=== PATIENT | male | born 1965 | race Caucasian/White ===

== ENCOUNTER → 2020-07-02 11:58 | Outpatient (CLI) | payer MEDICAID | END | disposition home or self-care (01) | LOC: D.LAB 11:58 | PROVIDERS: ATTEND Thoracic Surgery (Cardiothoracic Vascular Surgery) | DX: Z11.52 Encounter for screening for COVID-19 (principal) ==

== ENCOUNTER → 2020-07-03 14:46 | Outpatient (CLI) | payer BC ==
[2020-07-03 15:26] LABS: SARS-CoV-2 ANTIGEN NEGATIVE- SARS-COV-2 (NEGATIVE)
== END | disposition home or self-care (01) ==
LOC: D.RT 14:46
PROVIDERS: ATTEND Thoracic Surgery (Cardiothoracic Vascular Surgery)
DX: C34.90 Malignant neoplasm of unspecified part of unspecified bronchus or lung (principal)

== ENCOUNTER 2020-07-30 05:09 | Inpatient (IN) | payer BC ==
[2020-07-25 11:41] LABS: HEMATOCRIT 39.6 % (42.0-54.0); HEMOGLOBIN 13.2 g/dL (13.5-17.5); MCH 29.6 pg (26.0-34.0); MCHC 33.3 g/dL (31.0-37.0); MEAN PLATELET VOLUME 7.1 fL (7.4-10.4); RBC 4.45 10x6/uL (4.20-6.10); RDW 13.4 % (11.5-14.5); WBC 6.6 10x3/uL (4.8-10.8)
[2020-07-25 11:58] LABS: APTT 31.9 SECONDS (22.8-39.4)
[2020-07-25 12:29] LABS: ALBUMIN 3.4 g/dL (3.4-5.0); ALKALINE PHOSPHATASE 81 U/L (30-120); ALT (SGPT) 23 U/L (10-68); BILIRUBIN - TOTAL 0.33 mg/dL (0.2-1.3); CALC OSMOLALITY 281 mosm/kg (275-300); CALCIUM 8.1 mg/dL (8.5-10.1); CARBON DIOXIDE 26.7 mmol/L (21.0-32.0); CHLORIDE - SERUM 107 mmol/L (98-107); CREATININE - SERUM 0.8 mg/dL (0.6-1.3); POTASSIUM - SERUM 4.3 mmol/L (3.5-5.1); PROTEIN - SERUM 7.2 g/dL (6.4-8.2); SODIUM 141 mmol/L (136-145); UREA NITROGEN 21 mg/dL (7-18); eGFR NON AFRICAN AMERICAN > 90 mL/min (90-120)
[2020-07-25 12:30] LABS: GLUCOSE 70 mg/dL (74-106)
[2020-07-25 13:05] LABS: INR 1.07 (0.85-1.17); PROTIME 12.8 SECONDS (11.6-15.0)
[2020-07-25 14:02] LABS: BACTERIA FEW HPF (<MOD); BILIRUBIN NEGATIVE (NEGATIVE); KETONE NEGATIVE mg/dL (< 1+); NITRITE NEGATIVE (NEGATIVE); PH 5.5 (5.0-8.0); SQUAMOUS EPITHELIAL 2 HPF (0-4); URIC ACID CRYSTALS RARE HPF (NONE SEEN); UROBILINOGEN 2 mg/dL (< 2); WHITE CELLS - URINE 1 HPF (0-1)
[~2020-07-30] VITALS: Ht 182.9 cm; Wt 80.1 kg
[2020-07-30] VITALS (38 sets, daily range): BP systolic 92–151; BP diastolic 47–80; BMI 22.4; BMI 22.1
--- NOTE | 2020-07-30 09:55 | NUR ---
CVL AND ARTERIAL LINE PLACED BY ANESTHESIA, CORNEL.
--- NOTE | 2020-07-30 14:15 | NUR ---
, DR. SLOAN, AND DR. WADE NOTIFIED OF CONSULT.
[2020-07-31] VITALS (35 sets, daily range): BP systolic 78–135; BP diastolic 46–76; Ht 182.9 cm; Wt 80.1 kg
[2020-07-31 04:44] LABS: BASOPHILS 0.2 % (0-2); EOSINOPHILS 0.6 % (0-7); HEMATOCRIT 32.8 % (42.0-54.0); HEMOGLOBIN 11.1 g/dL (13.5-17.5); MCH 29.8 pg (26.0-34.0); MCHC 33.8 g/dL (31.0-37.0); MCV 88.3 fL (80.0-100.0); MEAN PLATELET VOLUME 7.5 fL (7.4-10.4); MONOCYTES 7.2 % (2-11); RBC 3.72 10x6/uL (4.20-6.10); RDW 13.1 % (11.5-14.5); WBC 8.1 10x3/uL (4.8-10.8)
[2020-07-31 04:56] LABS: PLATELET COUNT 190 10x3/uL (130-400)
[2020-07-31 05:13] LABS: ALBUMIN 2.3 g/dL (3.4-5.0); ALKALINE PHOSPHATASE 54 U/L (30-120); ALT (SGPT) 32 U/L (10-68); BILIRUBIN - TOTAL 0.53 mg/dL (0.2-1.3); CARBON DIOXIDE 25.3 mmol/L (21.0-32.0); CHLORIDE - SERUM 107 mmol/L (98-107); CREATININE - SERUM 0.7 mg/dL (0.6-1.3); MAGNESIUM - SERUM 1.8 mg/dL (1.8-2.4); PHOSPHOROUS 3.9 mg/dL (2.5-4.9); POTASSIUM - SERUM 3.4 mmol/L (3.5-5.1); PROTEIN - SERUM 5.2 g/dL (6.4-8.2); SODIUM 138 mmol/L (136-145); UREA NITROGEN 9 mg/dL (7-18); eGFR NON AFRICAN AMERICAN > 90 mL/min (90-120)
[2020-07-31 05:18] LABS: CALC OSMOLALITY 275 mosm/kg (275-300); CALCIUM 6.9 mg/dL (8.5-10.1); GLUCOSE 110 mg/dL (74-106)
--- NOTE | 2020-07-31 09:36 | OP ---
PATIENT NAME: KALE SCOTT MEDICAL RECORD: [id number] :67 [facility]:07/30/20 SURGEON: JUNIOR DODGE MD DATE OF OPERATION: 07/30/2020 SURGEON: Junior Dodge MD PROCEDURES PERFORMED: 1. Right middle lobe lobectomy. 2. Lysis of dense intrapleural adhesions. 3. Mediastinal lymph node dissection. 4. Bronchoscopy. PREOPERATIVE DIAGNOSIS: Squamous cell carcinoma. POSTOPERATIVE DIAGNOSIS: Squamous cell carcinoma, T1N0M0. ANESTHESIA: Double lumen general endotracheal anesthesia. ESTIMATED BLOOD LOSS: 150 mL. COMPLICATIONS: None. SPECIMENS: 1. Right middle lobe lobectomy. 2. Multiple mediastinal lymph node stations. CONDITION: Stable. DISPOSITION: ICU. OPERATIVE FINDINGS: 1. Dense intrapleural adhesions with no visualization with fluoroscopy, posterolateral thoracotomy with lysis of adhesions and the tumor was actually in the middle lobe lateral aspect well away from the fissure. The fissures were incomplete and were completed with staple lines. Single large pulmonary artery branch of the middle lobe and a single separate branch of the pulmonary vein. The bronchus was airtight under water. 2. Multiple anthracotic lymph nodes. Good reexpansion of the lung and cryotherapy for pain control. INDICATION: Lung cancer. PROCEDURE IN DETAIL: The patient was brought to the operating suite. General anesthesia was obtained. Bronchoscopy confirmed the position of the tube. The patient was placed in lateral decubitus. Bronchoscopy was again performed. Padding was appropriate and the lung was deflated. The chest was opened. Dense adhesions were noted. Adhesions were taken down with electrocautery and sharply. Hemostasis was ensured. A section of rib was removed and the thoracotomy incision was made. The upper lobe was freed. The tumor was actually in the middle lobe. Fissures were completed with staple lines. The pulmonary artery was divided with a vascular stapler and the pulmonary vein divided with a vascular stapler. The bronchus was divided airtight under water. Upper and lower lobes were then ventilated. The mediastinal lymph node dissection was performed. Hemostasis was ensured. Chest tubes were placed OPERATIVE REPORT [id number] KALE SCOTT apically and inferiorly. Cryotherapy to the nerve roots was performed. Chest was then closed with pericostal sutures, two running muscle layers, subcutaneous, subcuticular and Dermabond. Anesthesia was reversed. The patient to ICU without air leak. TRANSINT:[id number] Voice Confirmation ID: [id number] DOCUMENT ID: [id number] JUNIOR DODGE MD at 0936 CC: MIRNA SLOAN MD [id number] DICTATION DATE: 07/30/20 1507 TRANSPORTATION WORKER: 07/30/20 1554 ADM IN [place] [id number] [place] [address]
[2020-08-01] VITALS (39 sets, daily range): BP systolic 101–129; BP diastolic 40–69
[2020-08-01 05:34] LABS: BASOPHILS 0.3 % (0-2); EOSINOPHILS 1.3 % (0-7); HEMATOCRIT 32.3 % (42.0-54.0); HEMOGLOBIN 10.8 g/dL (13.5-17.5); LYMPHOCYTES 17.7 % (15-50); MCH 29.9 pg (26.0-34.0); MCHC 33.5 g/dL (31.0-37.0); MCV 89.2 fL (80.0-100.0); MEAN PLATELET VOLUME 7.5 fL (7.4-10.4); MONOCYTES 9.1 % (2-11); NEUTROPHILS 71.6 % (40-80); PLATELET COUNT 197 10x3/uL (130-400); RBC 3.62 10x6/uL (4.20-6.10); RDW 13.6 % (11.5-14.5); WBC 8.5 10x3/uL (4.8-10.8)
[2020-08-01 05:44] LABS: ALBUMIN 2.2 g/dL (3.4-5.0); ALKALINE PHOSPHATASE 58 U/L (30-120); ALT (SGPT) 30 U/L (10-68); BILIRUBIN - TOTAL 0.59 mg/dL (0.2-1.3); CALC OSMOLALITY 265 mosm/kg (275-300); CALCIUM 7.7 mg/dL (8.5-10.1); CARBON DIOXIDE 27.2 mmol/L (21.0-32.0); CHLORIDE - SERUM 103 mmol/L (98-107); CREATININE - SERUM 0.6 mg/dL (0.6-1.3); GLUCOSE 98 mg/dL (74-106); MAGNESIUM - SERUM 2.1 mg/dL (1.8-2.4); PHOSPHOROUS 2.7 mg/dL (2.5-4.9); POTASSIUM - SERUM 4.3 mmol/L (3.5-5.1); PROTEIN - SERUM 5.6 g/dL (6.4-8.2); SODIUM 134 mmol/L (136-145); UREA NITROGEN 8 mg/dL (7-18); eGFR NON AFRICAN AMERICAN > 90 mL/min (90-120)
--- NOTE | 2020-08-01 19:25 | NUR ---
REPORT REC'D AND CARE ASSUMED, REC'D PT ON ROOM AIR SITTING UP IN BED WATCHING TV, AWAKE, ALERT, AND ORIENTED X 4, LEFT HAND PIV SALINE LOCKED, RIJ CVL DRSG CDI WITH PLASMALYTE @ 30CC/HR INFUSING, RIGHT POSTERIOR CHEST INCISION CDI, RIGHT LATERAL CT TO WATER SEAL, DRSG CDI, EPIDURAL TAPED SECURELY TO BACK, EPIDURAL INFUSING @ 8.5CC/HR WITH 4CC Q20MIN ELECTRIC SHIPYARD OPERATOR AVAILABLE, PT DENIES PAIN AT THIS TIME, DAVIS PATENT DRAINING CLEAR YELLOW URINE, BILAT TEDS AND SCDS, AIR OVERLAY MATTRESS IN USE, SR UP X 2, CALL LIGHT IN REACH.
--- NOTE | 2020-08-01 23:34 | NUR ---
PT COMPLAINS OF ITCHING ALL OVER, ANESTHESIA PAGED AT THIS TIME.
--- NOTE | 2020-08-01 23:35 | NUR ---
SPOKE WITH Brittney ARGUETA FROM ANESTHESIA REGARDING ITCHING, ONE TIME ORDER FOR BENADRYL REC'D, 25MG BENADRYL GIVEN IVP TO PT, BP 121/67, O2 96% ON ROOM AIR, WILL MONITOR CLOSELY FOR CHANGES.
[2020-08-02] VITALS (23 sets, daily range): BP systolic 105–145; BP diastolic 55–94
[2020-08-02 05:47] LABS: BASOPHILS 0.5 % (0-2); EOSINOPHILS 1.9 % (0-7); HEMOGLOBIN 11.1 g/dL (13.5-17.5); LYMPHOCYTES 16.2 % (15-50); MCH 29.9 pg (26.0-34.0); MCHC 33.6 g/dL (31.0-37.0); MCV 88.8 fL (80.0-100.0); MEAN PLATELET VOLUME 7.6 fL (7.4-10.4); MONOCYTES 8.1 % (2-11); NEUTROPHILS 73.3 % (40-80); PLATELET COUNT 202 10x3/uL (130-400); RBC 3.72 10x6/uL (4.20-6.10); RDW 13.1 % (11.5-14.5)
[2020-08-02 06:33] LABS: ALBUMIN 2.2 g/dL (3.4-5.0); ALKALINE PHOSPHATASE 64 U/L (30-120); ALT (SGPT) 33 U/L (10-68); BILIRUBIN - TOTAL 0.38 mg/dL (0.2-1.3); CALCIUM 8.2 mg/dL (8.5-10.1); CARBON DIOXIDE 29.4 mmol/L (21.0-32.0); CHLORIDE - SERUM 99 mmol/L (98-107); GLUCOSE 126 mg/dL (74-106); MAGNESIUM - SERUM 1.9 mg/dL (1.8-2.4); POTASSIUM - SERUM 4.3 mmol/L (3.5-5.1); PROTEIN - SERUM 6.1 g/dL (6.4-8.2); SODIUM 133 mmol/L (136-145)
[2020-08-02 06:41] LABS: CALC OSMOLALITY 267 mosm/kg (275-300); CREATININE - SERUM 0.8 mg/dL (0.6-1.3); PHOSPHOROUS 3.6 mg/dL (2.5-4.9); UREA NITROGEN 12 mg/dL (7-18); eGFR NON AFRICAN AMERICAN > 90 mL/min (90-120)
--- NOTE | 2020-08-02 08:30 | NUR ---
REPORT RECEIVED FROM EMMIE ESCALANTE AND PATIENT CARE ASSUMED. PATIENT LAYING IN BED ON BACK WITH HOB ELEVATED 45 DEGREES. PATIENT IS AWAKE, ALERT AND ORIENTED X 4. PATIENT DENIES ANY NEEDS OR PAIN. VSS. ALL LINES DRAIN AND DAVIS CHECKED. ALL PATENT. WILL CONTINUE WITH PLAN OF CARE. SR UP X 2 BED IN LOW POSITION AND CALL LIGHT IN REACH.
--- NOTE | 2020-08-02 10:00 | NUR ---
DANGLED PATIENT ON SIDE OF BED. VSS. PATIENT DENIES ANY DIZZINESS OR WEAKNESS. PATIENT STATES THAT HE FEELS GOOD TO SIT UP. WILL CONTINUE TO MONITOR. SR UP X 2 BED IN LOW POSITION AND CALL LIGHT IN REACH.
--- NOTE | 2020-08-02 11:48 | NUR ---
Nutrition Follow-up: POD 3. Eating well. Diet: Regular WT: 180.7# (08/02); 163.1# (07/30) Labs noted: Na 133, Glu 126, Ca 8.2, Alb 2.2 Meds noted: Protonix, KDur -Continue current diet as tolerated. -Monitor wt. -RD will follow up within 3-5 days.
--- NOTE | 2020-08-02 13:37 | NUR ---
PATIENT SITTING UP IN BED WATCHING TV.PATIENT DENIES ANY NEEDS OR PAIN. VSS. WILL CONTINUE TO MONITOR. SR UP X 2 BED IN LOW POSITION AND CALL LIGHT IN REACH.
--- NOTE | 2020-08-02 18:28 | NUR ---
1745: ANSWERED CALL LIGHT. C/O NOT BEING ABLE TO PEE. 1755: BLADDER SCANNED WITH RESULTS OF 999+. 1800: DAVIS PLACED USING ASEPTIC TECHNIQUE WITH IMMEDIATE RETURN CLEAR YELLOW URINE.
--- NOTE | 2020-08-02 19:30 | NUR ---
REC'D PT RESTING IN BED, EYES CLOSED, RESP EVEN AND UNLABORED, PT AWAKENS EASILY, ORIENTED TO PERSON, PLACE AND TIME, LEFT HAND PIV SALINE LOCKED, RIJ CVLTL DRSG CDI, IV FLUIDS OFF AT THIS TIME PER ORDER, EPIDURAL TAPED SECURELY TO BACK INFUSING @ 8.5CC/HR WITH 4CC Q20MIN MECHANICAL SOUND TECHNICIAN FOR BREAKTHROUGH PAIN, DAVIS PATENT DRAINING CLEAR YELLOW URINE, BILAT TEDS/SCDS INTACT AND ON, PPP, SR UP X 2, BED IN LOW POSITION, CALL LIGHT IN REACH.
[2020-08-03] VITALS (23 sets, daily range): BP systolic 97–157; BP diastolic 53–85
[2020-08-03 05:50] LABS: BASOPHILS 0.4 % (0-2); EOSINOPHILS 2.8 % (0-7); HEMATOCRIT 32.4 % (42.0-54.0); HEMOGLOBIN 10.7 g/dL (13.5-17.5); LYMPHOCYTES 19.4 % (15-50); MCH 29.5 pg (26.0-34.0); MCHC 33.1 g/dL (31.0-37.0); MEAN PLATELET VOLUME 7.3 fL (7.4-10.4); MONOCYTES 9.9 % (2-11); NEUTROPHILS 67.5 % (40-80); PLATELET COUNT 236 10x3/uL (130-400); RBC 3.63 10x6/uL (4.20-6.10); RDW 13.2 % (11.5-14.5); WBC 7.2 10x3/uL (4.8-10.8)
[2020-08-03 06:10] LABS: ALBUMIN 2.2 g/dL (3.4-5.0); ALKALINE PHOSPHATASE 59 U/L (30-120); ALT (SGPT) 27 U/L (10-68); BILIRUBIN - TOTAL 0.35 mg/dL (0.2-1.3); CALC OSMOLALITY 265 mosm/kg (275-300); CALCIUM 8.4 mg/dL (8.5-10.1); CARBON DIOXIDE 30.8 mmol/L (21.0-32.0); CHLORIDE - SERUM 98 mmol/L (98-107); CREATININE - SERUM 0.8 mg/dL (0.6-1.3); GLUCOSE 102 mg/dL (74-106); PHOSPHOROUS 4.4 mg/dL (2.5-4.9); POTASSIUM - SERUM 4.6 mmol/L (3.5-5.1); PROTEIN - SERUM 6.2 g/dL (6.4-8.2); SODIUM 133 mmol/L (136-145); UREA NITROGEN 13 mg/dL (7-18); eGFR NON AFRICAN AMERICAN > 90 mL/min (90-120)
--- NOTE | 2020-08-03 12:45 | NUR ---
EPIDURAL DISCONTINUED BY ANESTHESIA AND PATIET UP TO CHAIR TO EAT LUNCH. ENCOURAGING PATIENT TO DO IS AND COUGH AND DEEP BREATH. PATIET EATING WITH O PROBLEMS.
[2020-08-03] MEDS ORDERED: ALBUTEROL SULF8.5 GM INH (13:20)
[2020-08-03] MEDS ORDERED: MUCINEX DM ER1 EAC1 PO (13:21)
[2020-08-03] MEDS ORDERED: NICODERM CQ1 EAC3 TRANSDERM (13:22)
[2020-08-03] MEDS ORDERED: HYDROCODON-ACE1 EAC7 PO (13:23)
--- NOTE | 2020-08-03 16:46 | NUR ---
DAVIS DISCONTINUED WHEN EPIDURAL REMOVED PATIENT HAS VOIDED WITH NO PROBLEM.
[2020-08-04] VITALS (66 sets, daily range): BP systolic 109–184; BP diastolic 2–92
--- NOTE | 2020-08-04 00:45 | NUR ---
REPORT REC'D AND CARE ASSUMED, REC'D PT IN BED WITH BLANKET COVERING HEAD, COMPLAINS OF PAIN RATING IT "5" ON 0-10 PAIN SCALE, NORCO GIVEN BY Danielle GARCIA RN FOR PAIN CONTROL, BP ELEVATED, PT REQUESTING POPSICLE, PROVIDED AT THIS TIME, PT DENIES FURTHER NEEDS, DRSG TO PREVIOUS RIGHT LATERAL CT SITE CDI, PT SERRA, BED IN LOW POSITION, URINAL EMPTIED OF 300CC CONCENTRATED URINE, PPP, CALL LIGHT AND URINAL IN REACH.
[2020-08-04 06:17] LABS: BASOPHILS 0.9 % (0-2); EOSINOPHILS 4.3 % (0-7); HEMATOCRIT 32.5 % (42.0-54.0); LYMPHOCYTES 18.8 % (15-50); MCH 29.4 pg (26.0-34.0); MCHC 33.7 g/dL (31.0-37.0); MCV 87.2 fL (80.0-100.0); MEAN PLATELET VOLUME 7.4 fL (7.4-10.4); PLATELET COUNT 248 10x3/uL (130-400); RBC 3.73 10x6/uL (4.20-6.10); RDW 12.9 % (11.5-14.5); WBC 5.7 10x3/uL (4.8-10.8)
[2020-08-04 06:39] LABS: ALBUMIN 2.3 g/dL (3.4-5.0); ALKALINE PHOSPHATASE 54 U/L (30-120); ALT (SGPT) 29 U/L (10-68); BILIRUBIN - TOTAL 0.14 mg/dL (0.2-1.3); CALC OSMOLALITY 278 mosm/kg (275-300); CALCIUM 8.6 mg/dL (8.5-10.1); CARBON DIOXIDE 30.9 mmol/L (21.0-32.0); CHLORIDE - SERUM 101 mmol/L (98-107); CREATININE - SERUM 0.7 mg/dL (0.6-1.3); GLUCOSE 111 mg/dL (74-106); MAGNESIUM - SERUM 2.3 mg/dL (1.8-2.4); PHOSPHOROUS 4.1 mg/dL (2.5-4.9); POTASSIUM - SERUM 4.1 mmol/L (3.5-5.1); PROTEIN - SERUM 6.3 g/dL (6.4-8.2); SODIUM 137 mmol/L (136-145); eGFR NON AFRICAN AMERICAN > 90 mL/min (90-120)
[2020-08-04 06:47] LABS: UREA NITROGEN 23 mg/dL (7-18)
--- NOTE | 2020-08-04 07:11 | NUR ---
REPORT RECEIVED FROM OFF GOING NURSE AND PATIENT CARE ASSUMED. PATIENT LAYING IN BED ON BACK WITH EYES CLOSED AND BREATHING EVENLY. VSS. WILL CONTINUE WITH PLAN OF CARE. SR UP X 2 BED IN LOW POSITION AND CALL LIGHT IN REACH.
[2020-08-04 09:08] LABS: IMMUNOGLOBULIN E 45 IU/mL (6-495)
[2020-08-05] VITALS (13 sets, daily range): BP systolic 125–156; BP diastolic 70–85
[2020-08-05 05:51] LABS: HEMATOCRIT 32.2 % (42.0-54.0); HEMOGLOBIN 10.9 g/dL (13.5-17.5); MCH 29.9 pg (26.0-34.0); MCV 87.8 fL (80.0-100.0); MEAN PLATELET VOLUME 7.4 fL (7.4-10.4); RBC 3.66 10x6/uL (4.20-6.10); RDW 12.9 % (11.5-14.5)
[2020-08-05 06:07] LABS: ALBUMIN 2.2 g/dL (3.4-5.0); ALKALINE PHOSPHATASE 54 U/L (30-120); ALT (SGPT) 31 U/L (10-68); CALC OSMOLALITY 276 mosm/kg (275-300); CALCIUM 8.5 mg/dL (8.5-10.1); CARBON DIOXIDE 31.6 mmol/L (21.0-32.0); CHLORIDE - SERUM 101 mmol/L (98-107); CREATININE - SERUM 0.7 mg/dL (0.6-1.3); GLUCOSE 97 mg/dL (74-106); POTASSIUM - SERUM 4.6 mmol/L (3.5-5.1); PROTEIN - SERUM 6.2 g/dL (6.4-8.2); SODIUM 137 mmol/L (136-145); UREA NITROGEN 20 mg/dL (7-18); eGFR NON AFRICAN AMERICAN > 90 mL/min (90-120)
--- NOTE | 2020-08-05 15:28 | NUR ---
PT STILL HAS NOT HAD BM. ATTEMPTED TO REACH DR. GEIGER. MESSAGE FOR CALL BACK LEFT ON HIS VOICE MAIL.
--- NOTE | 2020-08-05 15:41 | NUR ---
SPOKE WITH DR. GEIGER. INFORMED HIM THAT PT STILL HAD NOT HAD BM. ORDERED MIRALAX MIXED WITH PRUNE JUICE AND SPRITE.
[2020-08-05] MEDS ORDERED: COLACE100 MG PO (16:15)
[2020-08-05] MEDS ORDERED: DURAGESIC1 EAC4 TRANSDERM ×2 (16:15→16:21)
[2020-08-05] MEDS ORDERED: IBUPROFEN600 MG PO (16:15)
[2020-08-05] MEDS ORDERED: PERCOCET 5-3251 TAB PO (16:21)
--- NOTE | 2020-08-05 16:53 | NUR ---
PT RESTING IN BED. CALM. NOT ANXIOUS LIKE HE WAS EARLIER TODAY. STILL NO BM. DULCOLAX SUPP GIVEN PER ORDER.
--- NOTE | 2020-08-05 18:02 | NUR ---
CENTRAL LINE REMOVED PER ORDER. REMOVED WITHOUT COMPLICATION. CATHETER TIP REMOVED AND INTACT. DRESSING C/D/I
== END 2020-08-05 19:23 | disposition home or self-care (01) | DRG 164 ==
LOC: D.CVICU 05:09 → D.SDCHOLD 05:09 → D.CVICU 13:09
PROVIDERS: Internal Medicine Pulmonary Disease; ADMIT Thoracic Surgery (Cardiothoracic Vascular Surgery); ATTEND Thoracic Surgery (Cardiothoracic Vascular Surgery)
PROC: 0BTD0ZZ Resection of Right Middle Lung Lobe, Open Approach (ICD-10-PCS; principal; 2020-07-30 07:30)
PROC: 07T70ZZ Resection of Thorax Lymphatic, Open Approach (ICD-10-PCS; 2020-07-30 07:30)
DX: C34.2 Malignant neoplasm of middle lobe, bronchus or lung (principal); J98.11 Atelectasis; J44.9 Chronic obstructive pulmonary disease, unspecified; F17.200 Nicotine dependence, unspecified, uncomplicated; M19.90 Unspecified osteoarthritis, unspecified site; D64.9 Anemia, unspecified; E87.6 Hypokalemia; E88.09 Other disorders of plasma-protein metabolism, not elsewhere classified; R53.81 Other malaise; K59.00 Constipation, unspecified